=== PATIENT | female | born 1970 | race Caucasian/White ===

== ENCOUNTER 2017-06-25 19:31 | Emergency (ER) | payer OTHER ==
[~2017-06-25] VITALS: Ht 157.5 cm; Wt 90.7 kg
[2017-06-25 20:38] VITALS: BP 102/70
== END 2017-06-25 22:43 | disposition home or self-care (01) ==
LOC: ER 19:43
DX: S83.91XA Sprain of unspecified site of right knee, initial encounter (principal); S93.401A Sprain of unspecified ligament of right ankle, initial encounter; E11.9 Type 2 diabetes mellitus without complications; J45.909 Unspecified asthma, uncomplicated; M79.7 Fibromyalgia; Z88.6 Allergy status to analgesic agent; W19.XXXA Unspecified fall, initial encounter; Y93.89 Activity, other specified; Y92.89 Other specified places as the place of occurrence of the external cause; Y99.8 Other external cause status
CPT/HCPCS: 73564-TC; 73610-TC; A4606; Z7610